=== PATIENT | female | born 1985 | race Caucasian/White ===

== ENCOUNTER 2016-07-08 19:02 | Emergency (ER) | payer BC, OTHER ==
[2016-07-08 19:17] VITALS: BMI 40.5
[2016-07-08 21:57] LABS: BASOPHILS # (AUTO) 0.1 X10^3/uL (0.0-0.1); BASOPHILS % (AUTO) 0.8 % (0.2-1.0); EOSINOPHILS # (AUTO) 0.1 x10^3/uL (0.0-0.2); EOSINOPHILS % (AUTO) 1.3 % (0.9-2.9); HEMATOCRIT 37.3 % (36.0-47.0); LYMPHOCYTES # (AUTO) 3.2 X10^3/uL (1.3-2.9); LYMPHOCYTES % (AUTO) 27.7 % (21.0-51.0); MEAN CORPUSCULAR HEMOGLOBIN 25.3 pg (27.0-34.0); MEAN CORPUSCULAR HGB CONC 32.2 g/dL (33.0-35.0); MEAN CORPUSCULAR VOLUME 78.6 fL (80.0-100.0); MEAN PLATELET VOLUME 8.1 fL (7.4-11.0); MONOCYTES # (AUTO) 0.5 x10^3/uL (0.3-0.8); MONOCYTES % (AUTO) 4.6 % (0.0-13.0); NEUTROPHILS # (AUTO) 7.5 x10^3/uL (2.2-4.8); NEUTROPHILS % (AUTO) 65.6 % (42.0-75.0); PLATELET COUNT 394 X10^3/uL (150.0-450.0); RED BLOOD COUNT 4.74 X10^6/uL (3.5-5.4); RED CELL DISTRIBUTION WIDTH 16.2 % (11.6-16.5); WHITE BLOOD COUNT 11.4 X10^3/uL (3.6-10.0)
[2016-07-08 22:10] LABS: HYPOCHROMASIA SLIGHT; PLATELET MORPHOLOGY COMMENT NORMAL (NORMAL)
[2016-07-08 22:12] LABS: BLOOD UREA NITROGEN 7 mg/dL (7-18); CALCIUM 9.4 mg/dL (8.5-10.1); CARBON DIOXIDE 25.1 mmol/L (21-32); CHLORIDE 105 mmol/L (98-107); CREATININE 0.96 mg/dL (0.55-1.02); GLUCOSE 98 mg/dL (65-99); SODIUM 141 mmol/L (136-145); TROPONIN I < 0.02 ng/mL (0-1.5); eGFR BLACK RACES > 60 (>60); eGFR NON BLACK RACES > 60 (>60)
[2016-07-08 22:16] LABS: ALANINE AMINOTRANSFERASE 27 Units/L (12-78); ALBUMIN 4.1 g/dL (3.4-5.0); ALKALINE PHOSPHATASE 94 Units/L (46-116); AMYLASE 33 Units/L (25-115); ASPARTATE AMINO TRANSFERASE 20 Units/L (15-37); CKMB % 0.8 % (<4); CREATINE KINASE 121 Units/L (26-192); CREATINE KINASE MB < 1.0 ng/mL (0-4.0); LIPASE 108 Units/L (73-393); TOTAL PROTEIN 8.5 g/dL (6.4-8.2)
--- NOTE | 2016-07-08 22:23 | RAD ---
Chest PA and lateral Indication: Chest pain with nausea and vomiting. Findings: There is no pneumothorax, effusion or consolidation. Heart size is normal and the lungs ar e clear. Impression: No acute chest process. Reported By:
--- NOTE | 2016-07-08 22:49 | DR.GENAD ---
HPI - PCP Primary Care Physician: MAXIMINO VELASQUEZ - Complaint/Symptoms Chief Complaint:: STATES" FOR THE LAST 3 WEEKS SHES BEEN WAKING UP WITH PAIN IN HER MID SECTION AND N/V/D ON AND OFF FOR 3 WEEKS" - Source History Provided: Patient - Mode of Arrival Mode of Arrival: Ambulatory - Timing Onset of Chief Complaint: 06/17/16 PMH - PMH Past Medical History: Yes Past Medical History: Depression, Anemia, Kidney Stones, Migraines, Headaches Past Surgical History: Yes Surgical History: , FI[employer] Surgery, Lithotripsy Past Surgical History Comment: HERNIA - Family History History of Family Medical Conditions: Yes Family Medical History: Sudden Cardiac - Social History Type of Tobacco Use: Cigarettes Does any household member use tobacco: No Alcohol Use: Rarely Do you use any recreational Drugs:: No Lives With: Family Lives Where: Home - infectious screening In the last 2 months have you had wt loss of >10#?: NO Have you had fever, night sweats or hemotysis?: No Have you traveled outside the country in the last 6 months?: No Isolation: Standard ROS - Review of Systems Constitutional: No Symptoms Reported Eyes: No Symptoms Reported ENTM: No Symptoms Reported Respiratoy: No Symptoms Reported Cardiovascular: No Symptoms Reported Gastrointestinal/Abdominal: No Symptoms Reported, Abdominal Pain Genitourinary: No Symptoms Reported Neurological: No Symptoms Reported Musculoskeletal: No Symptoms Reported Integumentary: No Symptoms Reported Hematologic/Lymphatic: No Symptoms Reported Endocrine: No Symptoms Reported Psychiatric: No Symptoms Reported All Other Systems: Reviewed and Negative PE - Vital Signs Vitals: Temperature 98.3 F Pulse Rate 57 Respiratory Rate 18 Blood Pressure 179/95 O2 Sat by Pulse Oximetry 100 - General Limitations: No Limitations General Appearance: Alert, In No Apparent Distress - Head Head Exam: Normal Inspection, Atraumatic - Eyes Eye exam: Normal Appearance, PERRL, EOMI - ENT ENT Exam: Normal Exam External Ear Exam: Normal External Inspection TM/Canal Exam: Bilateral Normal Mouth Exam: Normal Inspection Throat Exam: Normal Inspection - Neck Neck Exam: Normal Inspection - Chest Chest Inspection: Normal Inspection - Respiratory Respiratory Exam: Normal Lung Sounds Bilat Respiratory Exam: Bilateral Clear to Auscultation - Cardiovascular Cardiovascular Exam: Regular Rate, Normal Rhythm - Abdominal Exam Abdominal Exam: Normal Inspection Abdominal Tenderness: negative: RUQ, RLQ, LUQ, LLQ, Epigastrium, Suprapubic, Diffuse, Mild, Moderate, Severe, Other - Extremities Extremities Exam: Normal Inspection, Full ROM - Back Back Exam: Normal Inspection - Neurologic Neurological Exam: Alert, Oriented X3, CN II-XII Intact - Psychiatric Psychiatric Exam: Normal Affect - Skin Skin Exam: Warm, Dry, Intact Course - Reevaluation 1st: Unchanged ROR - Labs Reviewed Result Diagrams: 07/08/16 21:45 07/08/16 21:45 Laboratory: WBC 11.4 X10^3/uL (3.6-10.0) H 07/08/16 21:45 RBC 4.74 X10^6/uL (3.5-5.4) 07/08/16 21:45 Hgb 12.0 g/dL (12.0-16.0) 07/08/16 21:45 Hct 37.3 % (36.0-47.0) 07/08/16 21:45 MCV 78.6 fL (80.0-100.0) L 07/08/16 21:45 MCH 25.3 pg (27.0-34.0) L 07/08/16 21:45 MCHC 32.2 g/dL (33.0-35.0) L 07/08/16 21:45 RDW 16.2 % (11.6-16.5) 07/08/16 21:45 Plt Count 394 X10^3/uL (150.0-450.0) 07/08/16 21:45 Plt Count Comment Adequate (ADEQUATE) 07/08/16 21:45 MPV 8.1 fL (7.4-11.0) 07/08/16 21:45 Neut % 65.6 % (42.0-75.0) 07/08/16 21:45 Lymph % 27.7 % (21.0-51.0) 07/08/16 21:45 [place] % 4.6 % (0.0-13.0) 07/08/16 21:45 Eos % 1.3 % (0.9-2.9) 07/08/16 21:45 Baso % 0.8 % (0.2-1.0) 07/08/16 21:45 Neut # 7.5 x10^3/uL (2.2-4.8) H 07/08/16 21:45 Lymph # 3.2 X10^3/uL (1.3-2.9) H 07/08/16 21:45 [place] # 0.5 x10^3/uL (0.3-0.8) 07/08/16 21:45 Eos # 0.1 x10^3/uL (0.0-0.2) 07/08/16 21:45 Baso # 0.1 X10^3/uL (0.0-0.1) 07/08/16 21:45 Absolute Nucleated RBC 0.0 /100WBC 07/08/16 21:45 Plt Morphology Comment Normal (NORMAL) 07/08/16 21:45 RBC Morphology Abnormal (NORMAL) A 07/08/16 21:45 Hypochromasia Slight A 07/08/16 21:45 Sodium 141 mmol/L (136-145) 07/08/16 21:45 Corrected Sodium TNP 07/08/16 21:45 Potassium 3.8 mmol/L (3.5-5.1) 07/08/16 21:45 Chloride 105 mmol/L (98-107) 07/08/16 21:45 Carbon Dioxide 25.1 mmol/L (21-32) 07/08/16 21:45 BUN 7 mg/dL (7-18) 07/08/16 21:45 Creatinine 0.96 mg/dL (0.55-1.02) 07/08/16 21:45 Est GFR (MDRD) Af Amer > 60 (>60) 07/08/16 21:45 Est GFR (MDRD) Non-Af > 60 (>60) 07/08/16 21:45 Glucose 98 mg/dL (65-99) 07/08/16 21:45 Calcium 9.4 mg/dL (8.5-10.1) 07/08/16 21:45 Corrected Calcium TNP 07/08/16 21:45 Total Bilirubin 0.40 mg/dL (0.2-1.0) 07/08/16 21:45 AST 20 Units/L (15-37) 07/08/16 21:45 ALT 27 Units/L (12-78) 07/08/16 21:45 Alkaline Phosphatase 94 Units/L (46-116) 07/08/16 21:45 Creatine Kinase 121 Units/L (26-192) 07/08/16 21:45 CK-MB (CK-2) < 1.0 ng/mL (0-4.0) 07/08/16 21:45 CK/CKMB % Calc 0.8 % (<4) 07/08/16 21:45 Troponin I < 0.02 ng/mL (0-1.5) 07/08/16 21:45 C-Reactive Protein 14.20 mg/L (0-3.0) H 07/08/16 21:45 Total Protein 8.5 g/dL (6.4-8.2) H 07/08/16 21:45 Albumin 4.1 g/dL (3.4-5.0) 07/08/16:45 Globulin 4.4 g/dL (2.5-4.5) 07/08/16: Albumin/Globulin Ratio 0.9 Ratio (1.1-2.1) L 07/08/16 21:45 Amylase 33 Units/L (25-115) 07/08/16 21:45 Lipase 108 Units/L (73-393) 07/08/16 21:45 Specimen Type Clean catch urine 07/08/16 22:30 Urine Color Yellow (YELLOW) 07/08/16 22:30 Urine Appearance Clear (CLEAR) 07/08/16 22: Urine pH 8.0 (5.0 - 8.0) 07/08/16 22:30 Ur Specific [place] 1.015 (1.000-1.030) 07/08/16 22:30 Urine Protein Negative (NEGATIVE) 07/08/16 22: Urine Glucose (UA) Negative (NEGATIVE) 07/08/16 22:30 Urine Ketones Negative (NEGATIVE) 07/08/16 22:30 Urine Occult Blood 2+ (NEGATIVE) 07/08/16 22:30 Urine Nitrite Negative (NEGATIVE) 07/08/16 22: Urine Bilirubin Negative (NEGATIVE) 07/08/16 22: Urine Urobilinogen Normal (NORMAL) 07/08/16 22:30 Ur Leukocyte Esterase Negative (NEGATIVE) 07/08/16 22:30 Urine RBC 0-3 /HPF (NEGATIVE) 07/08/16 22:30 Urine WBC None seen /HPF (NEGATIVE) 07/08/16 22:30 Ur Squamous Epith Cells Few /HPF (NEGATIVE) 07/08/16 22:30 Urine Bacteria 1+ /HPF (NEGATIVE) 07/08/16 22:30 Ur Culture Indicated? No/not indicated 07/08/16 22:30 H. pylori IgG Antibody Negative (NEGATIVE) 07/08/16 21:45 - XRAY XRAY Interpreted by: Radiologist (Chest: No acute chest process) - Diagnosis Discharge Problem: Abdominal pain Qualifiers: Abdominal location: generalized Qualified Code(s): R10.84 - Generalized abdominal pain - Discharge Plan Condition: Stable - Follow ups/Referrals Follow ups/Referrals: NFD,None [Primary Care Provider] - 3 days - Instructions
[2016-07-08 23:12] LABS: BILIRUBIN,URINE NEGATIVE (NEGATIVE); BLOOD/HEMOGLOBIN,URINE 2+ (NEGATIVE); GLUCOSE, URINE NEGATIVE (NEGATIVE); KETONES,URINE NEGATIVE (NEGATIVE); LEUKOCYTE ESTERASE ,URINE NEGATIVE (NEGATIVE); NITRITES,URINE NEGATIVE (NEGATIVE); PROTEIN,URINE NEGATIVE (NEGATIVE); UROBILINOGEN,URINE NORMAL (NORMAL)
[2016-07-08 23:17] LABS: APPEARANCE,URINE CLEAR (CLEAR); BACTERIA,URINE 1+ /HPF (NEGATIVE); COLOR,URINE YELLOW (YELLOW); RBC,URINE 0-3 /HPF (NEGATIVE); SQUAMOUS EPITHELIAL CELL,UR FEW /HPF (NEGATIVE)
[2016-07-09] MEDS ORDERED: NS 100 ML IV 100 ML IV ONE (01:38)
--- NOTE | 2016-07-09 02:50 | CT ---
CT abdomen and pelvis with contrast Indication: Chest and abdominal pain with vomiting Comparison: 05/17/12 Technique: Multiple axial images of the abdomen and pelvis were obtained from the lung bases to the pubic symph ysis after the administration of IV contrast. Coronal and sagittal reformatted images were also pro vided. Radiation dose reduction techniques were performed utilizing adjustment for MA/kVP based on patient body size. Findings: The lung bases are clear. Focal fatty infiltration is noted adjacent to the falciform ligament. No f ocal hepatic lesion identified. The gallbladder is distended with increased mucosal thickening and e nhancement, there is pericholecystic stranding as well. There is abnormal discontinuous enhancement of the gallbladder mucosa seen on axial image 34 consistent with focal perforation. No definite calc ified gallstone is identified. Common bile duct is normal. The spleen, pancreas and adrenal glands a re normal. Right kidney is without evidence of mass. There is an approximate 3 mm stone within the r ight renal pelvis without evidence of hydroureteronephrosis. Left kidney contains multiple nonobstru cting stones. No ureteral calculus within the left kidney. Urinary bladder is normal. An IUD is noted in place with hypoattenuating area within the cervix on a xial image 84 suspect represent a nabothian cyst. No adnexal mass identified . Peripherally enhancin g cyst within the left adnexa is most consistent with a corpus luteal or hemorrhagic cyst. The rectu m and colon are normal. The appendix is also normal. Upper GI tract is within normal limits . No pel sada free fluid. Abdominal aorta is normal in caliber. No acute osseous abnormality. Hernia mesh mate rial is noted within the anterior abdominal wall without residual or recurrent hernia. Impression: 1.Gallbladder distention, pericholecystic fluid with increased mucosal enhancement with discontinuit y of the gallbladder wall/mucosa consistent with acute cholecystitis and focal gallbladder wall perf oration. No cholelithiasis or choledocholithiasis identified on this examination. No localizing flui d collection or abscess. 2. Bilateral nonobstructing nephrolithiasis. 3. An IUD is noted in place with suspected nabothian cyst and left ovarian corpus luteal or hemorrha gic cyst . 4. Incidental findings as discussed above. Findings discussed with Dr. Gray by Dr. Ott at 2:45 a.m. On 07/09/2016 Reported By:
[2016-07-09 03:41] VITALS: BP 157/89
== END 2016-07-09 04:17 | disposition short-term general hospital (02) ==
LOC: ER 19:30
DX: R10.84 Generalized abdominal pain (principal)
CPT/HCPCS: 36415; 71020; 74177; 80053; 81001; 82150; 82550; 82553; 83690; 84484; 85025; 86140; 86677; 93005; 93010; 96365; 99283; 99285; A4222